=== PATIENT | male | born 1970 | race Caucasian/White ===

== ENCOUNTER 2018-11-07 13:04 | Emergency (ER) | payer OTHER, SELFPAY ==
[2018-11-07] MEDS ORDERED: Acetaminophen/Codeine 30-300mg Tablet ONE (13:22)
--- NOTE | 2018-11-07 14:29 | RAD ---
RIGHT KNEE 4 VIEWS: DATE: 11/07/2018. COMPARISON: None. HISTORY: Injury, trauma, pain. FINDINGS: Patellar sunrise view demonstrates no evidence for patellar fracture. There is mild enthesophyte for mation at the insertion of the quadriceps tendon. No knee joint effusion. No displaced fracture or evidence of dislocation seen. IMPRESSION: No acute osseous abnormality. POS: [facility]
[2018-11-07] MEDS ORDERED: Ibuprofen 800 MG TAB ONE (14:35)
== END 2018-11-07 14:51 | disposition home or self-care (01) ==
LOC: NAV ERS 13:04
DX: S93.401A Sprain of unspecified ligament of right ankle, initial encounter (principal); S80.01XA Contusion of right knee, initial encounter; W20.8XXA Other cause of strike by thrown, projected or falling object, initial encounter
CPT/HCPCS: 99001